=== PATIENT | male | born 1970 | race American Indian/Alaskan Native ===

== ENCOUNTER 2020-07-25 02:50 | Emergency (ER) | payer OTHER ==
[2020-07-25 03:13] VITALS: BP 127/73
[2020-07-25] MEDS ORDERED: ACETAMINOPHEN 500 MG TAB PO ONE (03:15)
[2020-07-25] MEDS ORDERED: IBUPROFEN 600 MG TAB PO ONE (03:15)
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
== END 2020-07-25 05:51 | disposition home or self-care (01) ==
LOC: ED 02:50
DX: S73.102A Unspecified sprain of left hip, initial encounter (principal); M62.830 Muscle spasm of back; M62.838 Other muscle spasm; E11.9 Type 2 diabetes mellitus without complications; Z79.899 Other long term (current) drug therapy; V49.49XA Driver injured in collision with other motor vehicles in traffic accident, initial encounter; Y93.89 Activity, other specified; Y92.488 Other paved roadways as the place of occurrence of the external cause; Y99.8 Other external cause status
CPT/HCPCS: 70450; 72125; 72131

== ENCOUNTER 2021-04-20 11:56 | Emergency (ER) | payer BC, OTHER ==
--- NOTE | 2021-04-20 12:02 | Emergency Department Report ---
ED Rash HPI - HPI Stated Complaint: RASH ON FACE Time Seen by Provider: 04/20/21 12:00 Duration: months Rash Symptoms: Yes Itching, Yes Peeling, No Fever Severity: moderate Other History: 50-year-old -Cyp[place] male presents to the emergency room complaining of flareup of his psoriasis. Patient states that he has been using atlg-wls-pqztzvz Selsun Blue which helps some but it has not helped in the last 2 weeks. Patient states that his scalp itches and now he is having blotches of hypopigmented rash on his face. ED Review of Systems ROS: Stated complaint: RASH ON FACE Other details as noted in HPI ED Past Medical Hx - Past Medical History Hx Hypertension: Yes Hx Diabetes: Yes (Prediabetes) Additional medical history: CHRONIC BACK PAIN - Social History Smoking Status: Never Smoker Substance Use Type: Alcohol - Medications Home Medications: Home Medications Medication Instructions Recorded Confirmed Last Taken Type Ibuprofen [Motrin] 800 mg PO Q8HR PRN #30 tablet 07/25/20 Unknown Rx methOCARBAMOL [Robaxin TAB] 750 mg PO Q8H PRN #21 tablet 07/25/20 Unknown Rx traMADoL [Ultram] 50 mg PO Q6HR PRN #12 tablet 07/25/20 Unknown Rx Clotrimazole/Betamethasone Dip 1 applicatio TP BID #45 cream..g. 04/20/21 Unknown Rx [Lotrisone Cream] Ketoconazole 120 ml TP 2XW #120 ml 04/20/21 Unknown Rx Triamcinolone 0.1% [Kenalog 0.1% 1 applic TP TID #30 tube 04/20/21 Unknown Rx CREAM] Rash Exam - Exam General: Vital signs noted. No distress. Alert and acting appropriately. HEENT: No Periorbital Edema, No Conjuctival Injection, No Chemosis, No Perioral Edema, No Tongue Edema, No Uvular Edema, No Compromised Airway, No Drooling Lungs: Yes Good Air Exchange (Normal Breath Sounds), No Wheezes, No Ronchi, No Stridor, No Cough, No Labored Respirations, No Retractions, No Use of Accessory Muscles, No Other Abnormal Lung Sounds Heart: Yes Regular, No Murmur Skin: Yes Maculopapular Rash Other: Positive: Abdomen Normal, Neurologic Normal ED Medical Decision Making - Medical Decision Making 50-year-old -[place]yp[place] male presents to the emergency room complaining of flareup of his psoriasis. Patient states that he has been using pzhj-aff-pnfguxa Selsun Blue which helps some but it has not helped in the last 2 weeks. Patient states that his scalp itches and now he is having blotches of hypopigmented rash on his face. Patient was treated with ultrasound on triamcinolone. Follow-up with dermatology. Critical care attestation.: If time is entered above; I have spent that time in minutes in the direct care of this critically ill patient, excluding procedure time. ED Disposition Clinical Impression: Tinea versicolor, Seborrheic dermatitis of scalp Disposition: 01 HOME / SELF CARE / HOMELESS Is pt being admited?: No Does the pt Need Aspirin: No Condition: Stable Instructions: Seborrheic Dermatitis, Adult, Tinea Versicolor, Pznl-rh-Mzel Additional Instructions: Please use medication as prescribed. 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 Prescriptions: Triamcinolone 0.1% [Kenalog 0.1% CREAM] 1 applic TP TID #30 tube Ketoconazole 120 ml TP 2XW #120 ml Clotrimazole/Betamethasone Dip [Lotrisone Cream] 1 applicatio TP BID #45 cream.. g. Referrals: [facility] [Provider Group] - 3-5 Days Forms: Work/School Release Form(ED) Time of Disposition: 12:07
[2021-04-20 12:05] VITALS: BP 144/85
== END 2021-04-20 12:29 | disposition home or self-care (01) ==
LOC: ED 11:56
DX: B36.0 Pityriasis versicolor (principal); L21.9 Seborrheic dermatitis, unspecified; I10 Essential (primary) hypertension; E11.9 Type 2 diabetes mellitus without complications; G89.29 Other chronic pain; Z72.89 Other problems related to lifestyle; Z79.899 Other long term (current) drug therapy
CPT/HCPCS: 99281